=== PATIENT | male | born 1995 | race Caucasian/White ===

== ENCOUNTER 2018-09-09 08:42 | Inpatient (IN) | payer BC, OTHER, MEDICAID ==
[~2018-09-09] VITALS: Ht 170.2 cm; Wt 47.7 kg
[2018-09-09 08:48] VITALS: Ht 170.2 cm; Wt 47.7 kg
[2018-09-09 09:44] LABS: CALCIUM 9.4 mg/dL (8.5-10.1); CARBON DIOXIDE 29.3 mmol/L (21-32); CHLORIDE SERUM 104 mmol/L (98-107); CREATININE SERUM 0.7 mg/dL (0.7-1.3); GFR1 > 60 mL/min; GLUCOSE SERUM 100 mg/dL (74-106); POTASSIUM SERUM 4.2 mmol/L (3.5-5.1); SODIUM SERUM 140 mmol/L (136-145)
[2018-09-09 09:58] LABS: ALBUMIN 3.8 g/dL (3.4-5.0); ALKALINE PHOSPHATASE 73 U/L (46-116); ALT/SGPT 18 U/L (16-63); AST/SGOT 15 U/L (15-37); BILIRUBIN TOTAL 0.4 mg/dL (0.20-1.00); TOTAL PROTEIN, SERUM 7.5 g/dL (6.4-8.2)
[2018-09-09 10:18] LABS: BASOPHIL % 0.4 % (0-2); PLATELET COUNT 209 x10^3mcL (130-400); RED CELL DISTRIBUTION WIDTH 14.2 % (11.5-14.5)
[2018-09-09] MEDS ORDERED: CLONAZEPAM0.5 MG PO (11:00)
[2018-09-09] MEDS ORDERED: DEPAKOTE ER500 MG PO (11:00)
[2018-09-09] MEDS ORDERED: CLONIDINE HCL0.2 MG PO (11:00)
[2018-09-09] MEDS ORDERED: OLANZAPINE10 MG PO ×3 (11:01→12:14)
[2018-09-09 11:04] LABS: AMPHETAMINE QUAL UR NONE DETECTED (See below)
[2018-09-09] MEDS ORDERED: EPZICOM1 TAB (12:14)
[2018-09-09 14:27] VITALS: BP 108/70
[2018-09-09 18:03] VITALS: BP 97/62
[2018-09-09 21:36] VITALS: BP 100/60
[2018-09-10 03:59] VITALS: BP 97/57
[2018-09-10 07:13] LABS: BASOPHIL % 0.4 % (0-2); PLATELET COUNT 185 x10^3mcL (130-400); RED CELL DISTRIBUTION WIDTH 13.4 % (11.5-14.5)
[2018-09-10 07:37] LABS: CALCIUM 9.1 mg/dL (8.5-10.1); CARBON DIOXIDE 25.5 mmol/L (21-32); CHLORIDE SERUM 107 mmol/L (98-107); CREATININE SERUM 0.6 mg/dL (0.7-1.3); GFR1 > 60 mL/min; GLUCOSE SERUM 87 mg/dL (74-106); POTASSIUM SERUM 4.2 mmol/L (3.5-5.1); SODIUM SERUM 143 mmol/L (136-145)
[2018-09-10 08:45] VITALS: BP 106/56
[2018-09-10 11:34] VITALS: BP 106/56
== END 2018-09-10 12:01 | disposition home or self-care (01) | DRG 918 ==
LOC: ED 08:42 → DU 11:02
PROVIDERS: Emergency Medicine; ADMIT Internal Medicine
DX: T42.6X1A Poisoning by other antiepileptic and sedative-hypnotic drugs, accidental (unintentional), initial encounter (principal); F84.0 Autistic disorder; F70 Mild intellectual disabilities; Y92.018 Other place in single-family (private) house as the place of occurrence of the external cause
CPT/HCPCS: 97116-GP; 97530-GP; G0480; J7030